=== PATIENT | female | born 1970 | race Caucasian/White ===

== ENCOUNTER 2018-01-24 21:37 | Emergency (ER) | payer OTHER ==
[2018-01-24 21:51] VITALS: BP 138/93; PULSE 103; TEMP 99.5; BMI 27.2
[2018-01-24] MEDS ORDERED: DEXAMETHASONE SOD PHOSPHATE 10 MG/1 ML VIAL IM ONE (22:10)
--- NOTE | 2018-01-24 22:10 | PDOC ---
History of Present Illness - General Chief Complaint: Allergic Reaction Stated Complaint: RASH Time Seen by Provider: 01/24/18 21:58 History Source: Patient - History of Present Illness Timing/Duration: reports: other Past History - Past Medical History Allergies/Adverse Reactions: Allergies Allergy/AdvReac Type Severity Reaction Status Date / Time No Known Allergies Allergy Verified 01/24/18 21:47 Home Medications: Ambulatory Orders Ibuprofen [Motrin -] 2 tab PO Q6H #30 tablet 01/24/18 COPD: No Other medical history: arthritis - Suicide/Smoking/Psychosocial Hx Smoking History: Never smoked Review of Systems - Review of Systems Constitutional: No: Chills, Fever Respiratory: Yes: Cough. No: Shortness of Breath, Wheezing Integumentary: Yes: Pruritus, Rash *Physical Exam - Vital Signs Last Vital Signs Temp Pulse Resp BP Pulse Ox 99.5 F 103 H 18 138/93 100 01/24/18 21:48 01/24/18 21:48 01/24/18 21:48 01/24/18 21:48 01/24/18 21:48 - Physical Exam General Appearance: Yes: Appropriately Dressed. No: Apparent Distress HEENT: positive: Normal ENT Inspection, Normal Voice. negative: Scleral Icterus (R), Scleral Icterus (L) Neck: positive: Supple Respiratory/Chest: positive: Lungs Clear, Normal Breath Sounds. negative: Respiratory Distress Cardiovascular: positive: Regular Rate, S1, S2 Integumentary: positive: Dry, Warm, Rash (hives to torso and upper exts b/l) Neurologic: positive: Fully Oriented, Alert, Normal Mood/Affect Medical Decision Making - Medical Decision Making 01/24/18 22:09 47-year-old female, no significant history here with dry cough since yesterday, no shortness of breath, chest pain, fever or chills. No tobacco history. No history of pneumonia. Also complaining of pruritic rash to body diffusely 5 days. No obvious inciting agents. Taking claritin with no relief. See exam URI m/l viral Exam unremarkable -dc w/ supportive tx Hives No obvious inciting factors -dose of decadron in ED -dc w/ benadryl OTC prn *DC/Admit/Observation/Transfer Diagnosis at time of Disposition: Hives URI (upper respiratory infection) Qualifiers: URI type: unspecified viral URI Qualified Code(s): J06.9 - Acute upper respiratory infection, unspecified - Discharge Dispostion Disposition: HOME Condition at time of disposition: Good - Prescriptions Prescriptions: Ibuprofen [Motrin -] 2 tab PO Q6H #30 tablet - Referrals - Patient Instructions Printed Discharge Instructions: DI for Hives, DI for Viral Upper Respiratory Infection -- Adult Additional Instructions: Wright tos es probablemente causada por chaz infeccin viral. [place] Robitussin de venta eliezer segn sea necesario y annalise muchos lquidos. Wright erupcin parece ser de naturaleza alrgica. Le dieron chaz dosis de esteroides en la disfuncin erctil. Compre Benadryl sin receta y tome chaz tableta cada 6 horas segn sea necesario para la picazn. Urszula medicamento puede causarle somnolencia, por lo que si tiene que salir de wright casa o conducir , no lo tome. Continuar el seguimiento con wright PMD Print Language: TAJIK - Post Discharge Activity
[2018-01-24] MEDS ORDERED: DEXAMETHASONE SOD PHOSPHATE 10 MG/1 ML VIAL ONE (22:13)
== END 2018-01-24 22:27 | disposition home or self-care (01) ==
LOC: JERFT 21:37
PROC: 3E0233Z Introduction of Anti-inflammatory into Muscle, Percutaneous Approach (ICD-10-PCS; principal; 2018-01-24)
DX: J06.9 Acute upper respiratory infection, unspecified (principal); B97.89 Other viral agents as the cause of diseases classified elsewhere; L50.9 Urticaria, unspecified
CPT/HCPCS: 96372; 99281-25; J1100

== ENCOUNTER 2018-02-24 14:33 | Inpatient (IN) | payer OTHER ==
--- NOTE | 2018-02-24 15:24 | PDOC ---
Rapid Medical Evaluation Chief Complaint: Pain Time Seen by Provider: 02/24/18 15:20 Medical Evaluation: Allergies Allergy/AdvReac Type Severity Reaction Status Date / Time No Known Allergies Allergy Verified 01/24/18 21:47 02/24/18 15:22 I have performed a brief in person evaluation. The patient presents with a CC of : abdominal pain HPI: Pt is a 47 YO female who states that she was diagnosed with a pelvic mass and was evaluated by her PCP last week. Pain is a 0/10. PE: Skin: Clear Lungs: Clear Heart: RRR Abd: Pain upon palpation to the RLE with hard mass palpated. MS: Moves all extremities without difficulty Neuro: Alert Psych: Appropriate affect I have ordered the following: basic labs. The patient will proceed to the ED for further evaluation. Discharge Disposition - Diagnosis Abdominal mass Qualifiers: Abdominal location: right lower quadrant Qualified Code(s): R19.03 - Right lower quadrant abdominal swelling, mass and lump - Referrals Referrals: Rene Chin MD [Primary Care Provider] - - Patient Instructions - Post Discharge Activity
[2018-02-24 15:29] VITALS: BMI 24.7
[2018-02-24 15:45] LABS: BASO % 0.7 % (0-2.0); EOS % 0.8 % (0-4.5); HEMOGLOBIN 11.5 GM/dL (10.7-15.3); LYMPH % 11.9 % (8-40); MCHC 33.8 g/dl (32.0-36.0); MEAN CELL VOLUME 76.9 fl (80-96); MEAN PLT VOLUME 7.3 fl (7.5-11.1); MONO % 7.6 % (3.8-10.2); PLATELET COUNT 399 K/MM3 (134-434); RBC 4.43 M/mm3 (3.60-5.2); RDW 16.1 % (11.6-15.6); WHITE BLOOD COUNT 10.3 K/mm3 (4.0-10.0)
[2018-02-24 16:19] LABS: ALBUMIN 3.1 g/dl (3.4-5.0); ALK PHOS 71 U/L (45-117); ANION GAP 8 MMOL/L (8-16); BILIRUBIN,TOTAL 0.2 mg/dL (0.2-1); BLOOD UREA NITROGEN 10 mg/dL (7-18); CALCIUM 8.3 mg/dL (8.5-10.1); CHLORIDE 104 mmol/L (98-107); CO2 27 mmol/L (21-32); CREATININE 0.7 mg/dL (0.55-1.3); GLUCOSE,RANDOM 106 mg/dL (74-106); LIPASE 120 U/L (73-393); SGOT/AST 13 U/L (15-37); SGPT/ALT 23 U/L (13-61); SODIUM 139 mmol/L (136-145); TOT PROT 6.9 g/dl (6.4-8.2)
[2018-02-24 16:40] LABS: HCG,QUALITATIVE URINE Negative
[2018-02-24 16:53] LABS: URINE APPEARANCE CLEAR; URINE BILIRUBIN NEGATIVE (<2.0 mg/dL); URINE COLOR YELLOW; URINE GLUCOSE (UA) NEGATIVE (NEGATIVE); URINE KETONE NEGATIVE (NEGATIVE); URINE LEUK ESTERASE NEGATIVE (NEGATIVE); URINE NITRITE NEGATIVE (NEGATIVE); URINE PROTEIN 1+ (NEGATIVE); URINE UROBILINOGEN NEGATIVE mg/dL (0.2-1.0)
[2018-02-24 17:12] LABS: EPI CELLS RARE /HPF (FEW); URINE MUCUS FEW
--- NOTE | 2018-02-24 17:39 | PDOC ---
History of Present Illness - General Chief Complaint: Pain Stated Complaint: ABD PAIN Time Seen by Provider: 02/24/18 15:20 History Source: Patient Exam Limitations: No Limitations - History of Present Illness Travel History: No Initial Comments: 02/24/18 18:26 47-year-old female presents to ED with complaints of continual rash to her body along with a bump to her suprapubic area. Patient states had multiple abdominal surgeries for abdominoplasty last one being 4 years ago and states for the past year she has had this bump below her suprapubic incision. Patient denies fever, chills redness, increased warmth or drainage from the site. Patient states went to see her PCP was recommending an abdominal CT to rule out adhesions versus seroma. Patient also was given a referral to a surgical physician at [facility] but states came here for a second opinion. Timing/Duration: reports: changing over time Quality: reports: mild Abdominal Pain Onset Location: reports: suprapubic Pain Radiation: reports: no radiation Aggravating Factors: improves with: None Alleviating Factors: improves with: None Past History - Past Medical History Allergies/Adverse Reactions: Allergies Allergy/AdvReac Type Severity Reaction Status Date / Time No Known Allergies Allergy Verified 02/24/18 15:23 Home Medications: Ambulatory Orders Escitalopram Oxalate [Lexapro -] 5 mg PO DAILY 02/24/18 Ibuprofen [Motrin -] 2 tab PO Q6H PRN 02/24/18 Metoprolol Succinate 50 mg PO DAILY 02/24/18 Omeprazole 40 mg PO DAILY 02/24/18 Zolpidem Tartrate [Ambien] 5 mg PO HS 02/24/18 COPD: No - Suicide/Smoking/Psychosocial Hx Smoking History: Never smoked Patient Lives Alone: No Lives with/in: spouse/SO Review of Systems - Review of Systems Able to Perform ROS?: No Constitutional: No: Symptoms Reported Integumentary: Yes: Lumps, Rash, Other Neurological: No: Symptoms reported *Physical Exam - Vital Signs Last Vital Signs Temp Pulse Resp BP Pulse Ox 99.6 F 91 H 16 120/85 99 02/24/18 15:23 02/24/18 15:23 02/24/18 15:23 02/24/18 15:23 02/24/18 15:23 - Physical Exam General Appearance: Yes: Nourished, Moderate Distress. No: Apparent Distress HEENT: positive: EOMI Neck: positive: Supple Respiratory/Chest: positive: Lungs Clear, Normal Breath Sounds. negative: Respiratory Distress, Accessory Muscle Use Cardiovascular: positive: Regular Rhythm, Regular Rate. negative: Murmur Gastrointestinal/Abdominal: positive: Soft, Other (noted firm raised skin extending to mons pubis below horizontal suprapubic incision. No increased warmth, redness or drainage) Integumentary: positive: Normal Color, Warm, Moist, Rash (scaly circular patches to back and araceli arms), Swelling Neurologic: positive: Motor Strength 5/5 (ambulatory) ED Treatment Course - LABORATORY CBC & Chemistry Diagram: 02/24/18 15:37 02/24/18 15:37 - ADDITIONAL ORDERS Additional order review: Laboratory Results 02/24/18 02/24/18 15:40 15:37 Sodium 139 Potassium 4.0 Chloride 104 Carbon Dioxide 27 Anion Gap 8 BUN 10 Creatinine 0.7 Creat Clearance w eGFR > 60 Random Glucose 106 Calcium 8.3 L Total Bilirubin 0.2 AST 13 L ALT 23 Alkaline Phosphatase 71 Total Protein 6.9 Albumin 3.1 L Lipase 120 Urine Color Yellow Urine Appearance Clear Urine pH 5.0 Ur Specific [place] 1.027 Urine Protein 1+ H Urine Glucose (UA) Negative Urine Ketones Negative Urine Blood 1+ H Urine Nitrite Negative Urine Bilirubin Negative Urine Urobilinogen Negative Ur Leukocyte Esterase Negative Urine WBC (Auto) <1 Urine RBC (Auto) 9 Ur Epithelial Cells Rare Urine Mucus Few Urine HCG, Qual Negative 02/24/18 15:37 RBC 4.43 MCV 76.9 L MCHC 33.8 RDW 16.1 H MPV 7.3 L Neutrophils % 79.0 Lymphocytes % 11.9 Monocytes % 7.6 Eosinophils % 0.8 Basophils % 0.7 - RADIOLOGY Radiology Studies Ordered: Category Date Time Status ABDOMEN & PELVIS CT WITH CONTR [CT] Stat CT Scan 02/24/18 17:31 Ordered Medical Decision Making - Medical Decision Making 02/24/18 18:34 Chief complaint: rash to bilateral arms and lump below Abdominoplasty incision Exam: Tinea corporis questionable cellulitis, seroma, adhesions plan: Labs, urine and abdominal CT with contrast 02/24/18 18:36 Laboratory Tests 11/20/18 11/20/18 11/20/18 15:37 15:37 15:40 WBC 10.3 H Hgb 11.5 Hct 34.0 MCV 76.9 L MCHC 33.8 RDW 16.1 H Plt Count 399 MPV 7.3 L Absolute Neuts (auto) 8.2 H Sodium 139 Potassium 4.0 Chloride 104 Carbon Dioxide 27 Anion Gap 8 BUN 10 Creatinine 0.7 Random Glucose 106 Calcium 8.3 L Total Bilirubin 0.2 AST 13 L ALT 23 Alkaline Phosphatase 71 Total Protein 6.9 Albumin 3.1 L Lipase 120 Urine Blood 1+ H Urine Nitrite Negative Ur Leukocyte Esterase Negative Urine WBC (Auto) <1 Urine RBC (Auto) 9 Urine HCG, Qual Negative *DC/Admit/Observation/Transfer Diagnosis at time of Disposition: Abdominal mass Qualifiers: Abdominal location: right lower quadrant Qualified Code(s): R19.03 - Right lower quadrant abdominal swelling, mass and lump - Referrals Referrals: Rene Chin MD [Primary Care Provider] - - Patient Instructions - Post Discharge Activity
--- NOTE | 2018-02-24 19:10 | PDOC ---
*Physical Exam - Vital Signs Last Vital Signs Temp Pulse Resp BP Pulse Ox 99.6 F 91 H 16 120/85 99 02/24/18 15:23 02/24/18 15:23 02/24/18 15:23 02/24/18 15:23 02/24/18 15:23 - Physical Exam General Appearance: Yes: Nourished, Appropriately Dressed. No: Apparent Distress Integumentary: positive: Dry, Warm, Rash (erythematous, flaking annular rash with central clearing to the legs and arms b/l.), Other (hard, warm, indurated area measuing [id number] to the lower abdomen b/l with induration extending into the R labia majora) Neurologic: positive: Fully Oriented, Alert, Normal Mood/Affect, Normal Response ED Treatment Course - LABORATORY CBC & Chemistry Diagram: 02/24/18 15:37 02/24/18 15:37 - ADDITIONAL ORDERS Additional order review: Laboratory Results 02/24/18 02/24/18 15:40 15:37 Sodium 139 Potassium 4.0 Chloride 104 Carbon Dioxide 27 Anion Gap 8 BUN 10 Creatinine 0.7 Creat Clearance w eGFR > 60 Random Glucose 106 Calcium 8.3 L Total Bilirubin 0.2 AST 13 L ALT 23 Alkaline Phosphatase 71 Total Protein 6.9 Albumin 3.1 L Lipase 120 Urine Color Yellow Urine Appearance Clear Urine pH 5.0 Ur Specific [place] 1.027 Urine Protein 1+ H Urine Glucose (UA) Negative Urine Ketones Negative Urine Blood 1+ H Urine Nitrite Negative Urine Bilirubin Negative Urine Urobilinogen Negative Ur Leukocyte Esterase Negative Urine WBC (Auto) <1 Urine RBC (Auto) 9 Ur Epithelial Cells Rare Urine Mucus Few Urine HCG, Qual Negative 02/24/18 15:37 RBC 4.43 MCV 76.9 L MCHC 33.8 RDW 16.1 H MPV 7.3 L Neutrophils % 79.0 Lymphocytes % 11.9 Monocytes % 7.6 Eosinophils % 0.8 Basophils % 0.7 - Medications Given in the ED: ED Medications Discontinued Medications Generic Name Dose Route Start Last Admin Trade Name Freq PRN Reason Stop Dose Admin Oxycodone/Acetaminophen 1 combo 02/24/18 17:31 02/24/18 18:09 Percocet 5/325 - PO 02/24/18 17:32 1 combo ONCE ONE Administration Medical Decision Making - Medical Decision Making 02/24/18 19:09 Sign out received from ADOLFO Moreira. Pt currently in CTAP to evaluate a possible seroma vs cellulitis. Will evaluate pt when back from CT. 02/24/18 20:50 CTAP: Cellulitis to the lower abdominal wall without abscess at this time. On exam lower abdomen extending into the groin hard and indurated; lymph nodes noted in the groin Will admit for cellulitis Vancomycin and zosyn started empirically Case discussed with Dr. Liz from [facility]. Pt to be admitted under Dr. Serrano. *DC/Admit/Observation/Transfer Diagnosis at time of Disposition: Cellulitis Qualifiers: Site of cellulitis: trunk Site of cellulitis of trunk: abdominal wall Qualified Code(s): L03.311 - Cellulitis of abdominal wall - Discharge Dispostion Condition at time of disposition: Stable Decision to Admit order: Yes - Referrals Referrals: Rene Chin MD [Primary Care Provider] - - Patient Instructions - Post Discharge Activity
[2018-02-24] MEDS ORDERED: VANCOMYCIN 1,000 MG in DEXTROSE 5%-WATER - 250 ML IVPB ONE (20:46)
[2018-02-24] MEDS ORDERED: PIPERACILLIN/TAZOB 3.375 GM 3.375 GM in DEXTROSE 5%-WATER - 50 ML IVPB ONE (20:47)
[2018-02-24] MEDS ORDERED: PIPERACILLIN/TAZOB 3.375 GM 3.375 GM/50 ML BAG IVPB ONE (20:52)
[2018-02-24] MEDS ORDERED: VANCOMYCIN 1 GRAM (PRE-DOCKED) 1,000 MG/250 ML BAG IVPB ONE (20:52)
--- NOTE | 2018-02-24 21:49 | PN ---
Teaching Attending Note Name of Resident: Chente Liz ATTENDING PHYSICIAN STATEMENT I saw and evaluated the patient. I reviewed the resident's note and discussed the case with the resident. I agree with the resident's findings and plan as documented. SUBJECTIVE: Patient is a 47-year-old woman who presents to ER with complaints of continual rash to her body along with a bump to her suprapubic area. Patient states had multiple abdominal surgeries for abdominoplasty last one being 4 years ago and states for the past year she has had this bump below her suprapubic incision. Patient denies fever, chills redness, increased warmth or drainage from the site. Patient states went to see her PCP was recommending an abdominal CT to rule out adhesions versus seroma. Patient also was given a referral to a surgical physician at [facility] but states came here for a second opinion. OBJECTIVE: Alert Vital Signs Period Temp Pulse Resp BP Sys/Rankin Pulse Ox Last 24 Hr 99.6 F-100.1 F 89-93 16-18 108-120/77-85 98-99 HEENT: No Jaundice, eye redness or discharge, PERRLA, EOMI. Normocephalic, atraumatic. External ears are normal and hearing is grossly intact. No nasal discharge. Neck: Supple, nontender. No palpable adenopathy or thyromegaly. No JVD Chest: Good effort. Clear to auscultation and percussion. Heart: Regular. No S3, rub or murmur Abdomen: Erythema and induration of lower abdominal wall extending into the pelvis. Not distended, soft, nontender and no HSM. No rebound or guarding. Normoactive bowel sounds. Ext: Peripheral pulses intact. No leg edema. Skin: Warm and dry. No petechiae, rash or ecchymosis. Neuro: Alert. Oriented x3. CN 2-12 grossly intact. Sensation grossly intact in all four extremities and DTR are symmetric. Current Medications Generic Name Dose Route Start Last Admin Trade Name Freq PRN Reason Stop Dose Admin Vancomycin HCl 1,000 mg/ 250 mls @ 166.667 mls/hr 02/24/18 20:46 02/24/18 21: 38 Dextrose IVPB 02/24/18 22:15 166.667 mls/hr ONCE ONE Administration Protocol Home Medications Medication Instructions Recorded Escitalopram Oxalate [Lexapro -] 5 mg PO DAILY 02/24/18 Ibuprofen [Motrin -] 2 tab PO Q6H PRN 02/24/18 Metoprolol Succinate 50 mg PO DAILY 02/24/18 Omeprazole 40 mg PO DAILY 02/24/18 Zolpidem Tartrate [Ambien] 5 mg PO HS 02/24/18 Abnormal Lab Results 02/24/18 02/24/18 02/24/18 15:37 15:37 15:40 WBC 10.3 H MCV 76.9 L RDW 16.1 H MPV 7.3 L Absolute Neuts (auto) 8.2 H Calcium 8.3 L AST 13 L Albumin 3.1 L Urine Protein 1+ H Urine Blood 1+ H ASSESSMENT AND PLAN: 1. Abdominal wall cellulitis - CT scan suggests cellulitis without fluid collection. No pelvic mass noted. Has left ovarian mass. Will continue treatment with IV vancomycin and consult ID. 2. DVT prophylaxis - Lovenox 40 mg sq q 24 hours. 3. Advance directives - Full code
--- NOTE | 2018-02-24 22:30 | HP ---
CHIEF COMPLAINT: lower abdominal swelling and pain PCP: HISTORY OF PRESENT ILLNESS: Patient is a 47 y/o F w/ PMHx/PSHx multiple abdominal/pelvic surgeries including hysterectomy, adhesion resection, cosmetic procedures, also has HTN, p /w of lower abdominal swelling, saw PCP 1 week ago who recommended CT a/p to evaluate seroma vs. adhesion. On presentation patient has large elevated region of lower abdomen centered around pubic symphysis with warmth, erythema, considerable induration, 9/10 tenderness. Additionally noted to have rash of arms and legs b/l consistent w/ tinea. No f/c, no n/v/c/d, no CP , no SOB. Borderline febrile in ED, labs otherwise unremarkable. hCG negative. CT a/p significant for extensive cellulitis of anterior lower abdominal wall without abscess formation. ER course was notable for: (1) BCx drawn (2) started on empiric Vanc/Zosyn (3) CT a/p: cellulitis Recent Travel: PAST MEDICAL HISTORY: As per HPI PAST SURGICAL HISTORY: As per HPI Social History: Smoking: Alcohol: Drugs: Family History: Allergies No Known Allergies Allergy (Verified 02/24/18 15:23) HOME MEDICATIONS: Home Medications Medication Instructions Recorded Escitalopram Oxalate [Lexapro -] 5 mg PO DAILY 02/24/18 Ibuprofen [Motrin -] 2 tab PO Q6H PRN 02/24/18 Metoprolol Succinate 50 mg PO DAILY 02/24/18 Omeprazole 40 mg PO DAILY 02/24/18 Zolpidem Tartrate [Ambien] 5 mg PO HS 02/24/18 REVIEW OF SYSTEMS as per HPI PHYSICAL EXAMINATION Vital Signs - 24 hr 02/24/18 02/24/18 02/24/18 15:23 19:00 20:19 Temperature 99.6 F 100.1 F H Pulse Rate 91 H Pulse Rate [ 89 93 H Left Radial] Respiratory 16 18 17 Rate Blood Pressure 120/85 Blood Pressure 108/77 114/77 [Right Arm] O2 Sat by Pulse 99 98 98 Oximetry (%) GENERAL: A&Ox3, NAD HEAD: NC/AT EYES: PERRLA, EOMI EARS, NOSE, THROAT: Ears normal, nares patent, oropharynx clear without exudates. Moist mucous membranes. NECK: Normal range of motion, supple without lymphadenopathy, JVD, or masses. LUNGS: CTA b/l HEART: RRR no m/r/g ABDOMEN: elevated, indurated region of skin in suprapubic region extending from ASIS to lab majora b/l w/ warmth and erythema, 9/10 TTP, inguinal lymphadenopathy, area of erythema and warmth extends superiorly to umbilicus. Otherwise +bs, soft. MUSCULOSKELETAL: Normal range of motion at all joints. No bony deformities or tenderness. No CVA tenderness. UPPER EXTREMITIES: 2+ pulses, warm, well-perfused. No cyanosis. No clubbing. No peripheral edema. LOWER EXTREMITIES: 2+ pulses, warm, well-perfused. No calf tenderness. No peripheral edema. NEUROLOGICAL: double cut sawyer, motor, sensory systems without focal deficit PSYCHIATRIC: Cooperative. Good eye contact. Appropriate mood and affect. SKIN: scaly circular lesions diffusely x 4 extremities Laboratory Results - last 24 hr 02/24/18 02/24/18 02/24/18 15:37 15:37 15:40 WBC 10.3 H RBC 4.43 Hgb 11.5 Hct 34.0 MCV 76.9 L MCH 26.0 MCHC 33.8 RDW 16.1 H Plt Count 399 MPV 7.3 L Absolute Neuts (auto) 8.2 H Neutrophils % 79.0 Lymphocytes % 11.9 Monocytes % 7.6 Eosinophils % 0.8 Basophils % 0.7 Nucleated RBC % 0 Sodium 139 Potassium 4.0 Chloride 104 Carbon Dioxide 27 Anion Gap 8 BUN 10 Creatinine 0.7 Creat Clearance w eGFR > 60 Random Glucose 106 Calcium 8.3 L Total Bilirubin 0.2 AST 13 L ALT 23 Alkaline Phosphatase 71 Total Protein 6.9 Albumin 3.1 L Lipase 120 Urine Color Yellow Urine Appearance Clear Urine pH 5.0 Ur Specific [place] 1.027 Urine Protein 1+ H Urine Glucose (UA) Negative Urine Ketones Negative Urine Blood 1+ H Urine Nitrite Negative Urine Bilirubin Negative Urine Urobilinogen Negative Ur Leukocyte Esterase Negative Urine WBC (Auto) <1 Urine RBC (Auto) 9 Ur Epithelial Cells Rare Urine Mucus Few Urine HCG, Qual Negative ASSESSMENT/PLAN: 47 y/o F w/ PMHx multiple abdominal/pelvic surgeries p/w chronic suprapubic swelling w/ acute development of lower abdominal wall cellulitis #cellulitis -large region of induration from ASIS to labia majora b/l, +lymphadenopathy -further extension of erythema/warmth to umbilicus -ID consulted -empiric vanc/zosyn given -cont vancomycin pending ID evaluation #tinea -topical miconazole #FEN -no IVF -monitor lytes -regular diet #PPx -DVT: heparin subq -GI: not indicated #code -full #dispo -admit to med/surg Visit type - Emergency Visit Emergency Visit: Yes Care time: The patient presented to the Emergency Department on the above date and was hospitalized for further evaluation of their emergent condition. - New Patient This patient is new to me today: Yes Date on this admission: 02/24/18 - Critical Care Critical Care patient: No
[2018-02-25] MEDS ORDERED: HEPARIN NA (PORCINE) 5,000 UNITS/ML 1ML VIAL ONE (00:09)
[2018-02-25] MEDS: HEPARIN NA (PORCINE) 5,000 UNITS/ML 1ML VIAL SQ SCH ×4 (00:13→21:50)
[2018-02-25] MEDS: MICONAZOLE NITRATE 28 GM TUBE TP SCH ×3 (00:13→21:49)
[2018-02-25] MEDS ORDERED: ACETAMINOPHEN 325 MG TABLET (FP) PO ONE (03:12)
[2018-02-25] MEDS ORDERED: MELATONIN 5 MG TABLETS PO ONE ×2 (03:12→22:00)
[2018-02-25 06:51] LABS: BASO % 0.5 % (0-2.0); EOS % 0.5 % (0-4.5); HEMATOCRIT 32.7 % (32.4-45.2); HEMOGLOBIN 10.4 GM/dL (10.7-15.3); LYMPH % 18.7 % (8-40); MCH 24.6 pg (25.7-33.7); MCHC 31.8 g/dl (32.0-36.0); MEAN CELL VOLUME 77.3 fl (80-96); MEAN PLT VOLUME 7.5 fl (7.5-11.1); MONO % 6.1 % (3.8-10.2); NEUT % 74.2 % (42.8-82.8); PLATELET COUNT 355 K/MM3 (134-434); RBC 4.23 M/mm3 (3.60-5.2); RDW 16.3 % (11.6-15.6); WHITE BLOOD COUNT 9.7 K/mm3 (4.0-10.0)
[2018-02-25 07:13] LABS: INR 1.26 (0.83-1.09); PROTHROMBIN TIME (PATIENT) 14.9 SEC (9.7-13.0)
[2018-02-25 07:16] LABS: ACTIVATED PTT 30.9 SECONDS (25.2-36.5)
[2018-02-25 07:43] LABS: ANION GAP 8 MMOL/L (8-16); BLOOD UREA NITROGEN 10 mg/dL (7-18); CHLORIDE 104 mmol/L (98-107); CO2 27 mmol/L (21-32); CREATININE 0.7 mg/dL (0.55-1.3); GLUCOSE,RANDOM 92 mg/dL (74-106); MAGNESIUM 2.2 mg/dL (1.8-2.4); PHOSPHOROUS 4.8 mg/dL (2.5-4.9); POTASSIUM 3.8 mmol/L (3.5-5.1); SODIUM 139 mmol/L (136-145)
[2018-02-25] MEDS ORDERED: ACETAMINOPHEN 325 MG TABLET (FP) PO PRN (09:18)
[2018-02-25] MEDS ORDERED: PIPERACILLIN/TAZOB 3.375 GM 3.375 GM in DEXTROSE 5%-WATER - 50 ML IVPB ONE (09:18)
[2018-02-25] MEDS ORDERED: VANCOMYCIN 1 GRAM (PRE-DOCKED) 1,000 MG/250 ML BAG IVPB ONE (10:00)
[2018-02-25] MEDS ORDERED: PT OWN MED DRAWER 7, Y5N ONE (10:12)
[2018-02-25] MEDS ORDERED: DEXTROSE 5%-WATER - 50 ML IVPB ONE (10:12)
[2018-02-25] MEDS ORDERED: PIPERACILLIN/TAZOBACTAM 3.375 GM VIAL IVPB ONE (10:12)
--- NOTE | 2018-02-25 12:02 | CON.ID ---
Consult Consult Specialty:: infectious disease Referred by:: hospitalist Reason for Consultation:: induration below her abdominal incision - History of Present Illness Chief Complaint: induration, pain lower abdomen for 2 months History of Present Illness: 47 yo female with history of multiple abdominal surgeries including tummy tuck and hysterectomy- last procedure was 2013 in . no fevers 2 months ago she was on a trip to when the abdominal swelling and pain began she notes she had a much milder swelling last year that resolved with motrin- also has a itchy rash on her arms and legs for last one month-respondingto topical antifungals and benadryl received vanco and zosyn in ED no pets - History Source History Provided By: Patient Limitations to Obtaining History: Poor Historian - Past Medical History Cardio/Vascular: Yes: HTN - Past Surgical History Past Surgical History: Yes: Hernia Repair (with mesh), Hysterectomy Additional Surgical History: tummy tuck, liposuction - Alcohol/Substance Use Hx Alcohol Use: No - Smoking History Smoking history: Never smoked - Social History Usual Living Arrangement: Alone ADL: Independent History of Recent Travel: Yes () Home Medications - Allergies Allergies/Adverse Reactions: Allergies Allergy/AdvReac Type Severity Reaction Status Date / Time No Known Allergies Allergy Verified 02/24/18 15:23 - Home Medications Home Medications: Ambulatory Orders Escitalopram Oxalate [Lexapro -] 5 mg PO DAILY 02/24/18 Ibuprofen [Motrin -] 2 tab PO Q6H PRN 02/24/18 Metoprolol Succinate 50 mg PO DAILY 02/24/18 Omeprazole 40 mg PO DAILY 02/24/18 Zolpidem Tartrate [Ambien] 10 mg PO HS 02/24/18 Acetaminophen [Tylenol] 325 mg PO Q8H PRN 02/25/18 Albuterol Sulfate Inhaler - [Ventolin HFA Inhaler -] 2 puff IH Q6H PRN 02/25/18 Family Disease History - Family Disease History Family History: Unable to Obtain Review of Systems - Review of Systems Constitutional: denies: Chills, Fever, Loss of Appetite, Unintentional Wgt. Loss Eyes: reports: No Symptoms HENT: reports: No Symptoms Neck: reports: No Symptoms Cardiovascular: reports: No Symptoms Respiratory: reports: No Symptoms Gastrointestinal: reports: No Symptoms. denies: Constipation, Diarrhea, Nausea , Vomiting Physical Exam Vital Signs: Vital Signs Temperature 99.0 F 02/25/18 06:00 Pulse Rate 84 02/25/18 06:00 Respiratory Rate 18 02/25/18 06:00 Blood Pressure 103/60 02/25/18 06:00 O2 Sat by Pulse Oximetry (%) 100 02/25/18 02:00 Constitutional: Yes: Well Nourished, No Distress Eyes: Yes: Conjunctiva Clear, EOM Intact HENT: Yes: Atraumatic, Normocephalic. No: Thrush Neck: Yes: Supple, Trachea Midline Cardiovascular: Yes: Regular Rate and Rhythm Respiratory: Yes: Regular, CTA Bilaterally Gastrointestinal: Yes: Normal Bowel Sounds, Other (hard indurated right lower abdomen below midlinincision, extending to labia on the right left side is also swollen but less indurated no fluctuance, no erythema) Edema: No Labs: CBC, BMP 02/25/18 06:00 02/25/18 06:00 Imaging - Results Cat Scan: Report Reviewed, Image Reviewed (no seroma, no fluid collection, no adenopathy, area of inflammation outside the abdominal wall) Problem List - Problems (1) Abdominal or pelvic swelling, mass, or lump, generalized Code(s): R19.07 - GENERALIZED INTRA-ABD AND PELVIC SWELLING, MASS AND LUMP Assessment/Plan chronic problem- makes acute bacterial infection unlikely- needs workup to include esr/crp, HIV testing (patient agrees), quantiferon gold would consider biopsy for both culture (routine, afb, fungal) as well as pathology would observe off antibiotics if indeed this is a chronic mesh infection - is will be inportant to establish a diagnosis first - ?atypical mycobacterial infection?? ct scan reviewed with radiologist d/w hospitalist
--- NOTE | 2018-02-25 15:20 | PN ---
Physical Exam: SUBJECTIVE: Patient seen and examined at bedside. no acute events overnight. patient states that her pain is much better; she is not having any chest pains, shortness of breath, N/V fevers or chills OBJECTIVE: Vital Signs Period Temp Pulse Resp BP Sys/Rankin Pulse Ox Last 24 Hr 97.6 F-100.1 F 80-93 16-20 103-120/60-98 98-100 GENERAL: The patient is awake, alert, and fully oriented, in no acute distress. EYES: no scleral icterus NECK: no JVD, no thyromegaly LUNGS:CTA B/L; no rales, rhonchi or wheezing HEART: Regular rate and rhythm, S1, S2 without murmur, rub or gallop. ABDOMEN: right sided lower abomen/pelvic indurated region with erythema no fluctuance or drainage appreciated; left sided slightly swollen with some induration EXTREMITIES: 2+ pulses, warm, well-perfused, no edema; upper extremities showing a tinea-like rash. PSYCH: Normal mood, normal affect. SKIN: Warm, dry, normal turgor, no rashes or lesions noted Laboratory Results - last 24 hr 02/24/18 02/24/18 02/24/18 15:37 15:37 15:40 WBC 10.3 H RBC 4.43 Hgb 11.5 Hct 34.0 MCV 76.9 L MCH 26.0 MCHC 33.8 RDW 16.1 H Plt Count 399 MPV 7.3 L Absolute Neuts (auto) 8.2 H Neutrophils % 79.0 Lymphocytes % 11.9 Monocytes % 7.6 Eosinophils % 0.8 Basophils % 0.7 Nucleated RBC % 0 PT with INR INR PTT (Actin FS) Sodium 139 Potassium 4.0 Chloride 104 Carbon Dioxide 27 Anion Gap 8 BUN 10 Creatinine 0.7 Creat Clearance w eGFR > 60 Random Glucose 106 Hemoglobin A1c % Calcium 8.3 L Phosphorus Magnesium Total Bilirubin 0.2 AST 13 L ALT 23 Alkaline Phosphatase 71 Total Protein 6.9 Albumin 3.1 L Lipase 120 Urine Color Yellow Urine Appearance Clear Urine pH 5.0 Ur Specific [place] 1.027 Urine Protein 1+ H Urine Glucose (UA) Negative Urine Ketones Negative Urine Blood 1+ H Urine Nitrite Negative Urine Bilirubin Negative Urine Urobilinogen Negative Ur Leukocyte Esterase Negative Urine WBC (Auto) <1 Urine RBC (Auto) 9 Ur Epithelial Cells Rare Urine Mucus Few Urine HCG, Qual Negative Blood Type Antibody Screen 02/25/18 02/25/18 02/25/18 06:00 06:00 06:00 WBC 9.7 RBC 4.23 Hgb 10.4 L Hct 32.7 MCV 77.3 L MCH 24.6 L MCHC 31.8 L RDW 16.3 H Plt Count 355 MPV 7.5 Absolute Neuts (auto) 7.2 Neutrophils % 74.2 Lymphocytes % 18.7 D Monocytes % 6.1 Eosinophils % 0.5 Basophils % 0.5 Nucleated RBC % 0 PT with INR 14.90 H INR 1.26 H PTT (Actin FS) 30.9 Sodium 139 Potassium 3.8 Chloride 104 Carbon Dioxide 27 Anion Gap 8 BUN 10 Creatinine 0.7 Creat Clearance w eGFR > 60 Random Glucose 92 Hemoglobin A1c % Calcium 8.0 L Phosphorus 4.8 Magnesium 2.2 Total Bilirubin AST ALT Alkaline Phosphatase Total Protein Albumin Lipase Urine Color Urine Appearance Urine pH Ur Specific [place] Urine Protein Urine Glucose (UA) Urine Ketones Urine Blood Urine Nitrite Urine Bilirubin Urine Urobilinogen Ur Leukocyte Esterase Urine WBC (Auto) Urine RBC (Auto) Ur Epithelial Cells Urine Mucus Urine HCG, Qual Blood Type Antibody Screen 02/25/18 02/25/18 02/25/18 06:00 06:00 10:03 WBC RBC Hgb Hct MCV MCH MCHC RDW Plt Count MPV Absolute Neuts (auto) Neutrophils % Lymphocytes % Monocytes % Eosinophils % Basophils % Nucleated RBC % PT with INR INR PTT (Actin FS) Sodium Potassium Chloride Carbon Dioxide Anion Gap BUN Creatinine Creat Clearance w eGFR Random Glucose Hemoglobin A1c % < 5.0 Calcium Phosphorus Magnesium Total Bilirubin AST ALT Alkaline Phosphatase Total Protein Albumin Lipase Urine Color Urine Appearance Urine pH Ur Specific [place] Urine Protein Urine Glucose (UA) Urine Ketones Urine Blood Urine Nitrite Urine Bilirubin Urine Urobilinogen Ur Leukocyte Esterase Urine WBC (Auto) Urine RBC (Auto) Ur Epithelial Cells Urine Mucus Urine HCG, Qual Blood Type O POSITIVE O POSITIVE Antibody Screen Negative Active Medications Generic Name Dose Route Start Last Admin Trade Name Freq PRN Reason Stop Dose Admin Acetaminophen 650 mg 02/25/18 09:18 Tylenol - PO Q4H PRN PAIN Heparin Sodium (Porcine) 5,000 unit 02/24/18 22:30 02/25/18 06:16 Heparin - SQ 5,000 unit TID JOSEFINA Administration Miconazole Nitrate 1 applic 02/24/18 22:30 02/25/18 10:25 Miconazole Nitrate TP 1 applic BID JOSEFINA Administration ASSESSMENT/PLAN: 47 y/o female with PMH of HTN, multiple abdominal/pelvic surgery presents with chronic suprapubic swelling with development of lower abdominal wall cellulitis #Abdominal Wall Cellulitis ab/pelvis CT showed skin thickening, inflammatory changes within the anterior abdominal wall of lower pelvis c/w cellulitis but no hematoma or abcess -ID consulted- appreciate recs -ESR/CRP ordered -HIV testing ordered (patient consented) -quanteferon gold ordered -patient not currently on abx -HBA1c <5 #Tinea rash -topical miconazole #Hypertension -stable -holding patients antihypertensive meds for now F/E/N no IVF monitor electrolytes regular diet DVT PPX: heparin SQ Problem List - Problems (1) Abdominal or pelvic swelling, mass, or lump, generalized Code(s): R19.07 - GENERALIZED INTRA-ABD AND PELVIC SWELLING, MASS AND LUMP (2) Cellulitis Code(s): L03.90 - CELLULITIS, UNSPECIFIED Qualifiers: Site of cellulitis: trunk Site of cellulitis of trunk: abdominal wall Qualified Code(s): L03.311 - Cellulitis of abdominal wall Visit type - Emergency Visit Emergency Visit: Yes ED Registration Date: 02/24/18 Care time: The patient presented to the Emergency Department on the above date and was hospitalized for further evaluation of their emergent condition. - New Patient This patient is new to me today: Yes Date on this admission: 02/25/18 - Critical Care Critical Care patient: No
--- NOTE | 2018-02-25 17:26 | PN ---
Teaching Attending Note Name of Resident: Maribel Delgado ATTENDING PHYSICIAN STATEMENT I saw and evaluated the patient. I reviewed the resident's note and discussed the case with the resident. I agree with the resident's findings and plan as documented with exceptions below. SUBJECTIVE: Patient seen and examined. No pain currently,no fevers, chills or new complaints. OBJECTIVE: Vital Signs Period Temp Pulse Resp BP Sys/Rankin Pulse Ox Last 24 Hr 97.6 F-100.1 F 80-93 17-20 103-120/60-98 98-100 Intake & Output 02/22/18 02/23/18 02/24/18 02/25/18 23:59 23:59 23:59 23:59 Intake Total 350 Balance 350 Weight 139 lb 12.8 oz 140 lb General: sitting in bed in no acute distress Chest: CTAB, no rales or wheezing Abdomen:soft, NT, ND lower abdominal horizontal incisoin, swelling with induration without any erythema/tenderness or warmth in suprapubic region extending down right labia, no discharge noted Extremities: no edema Home Medications Medication Instructions Recorded Escitalopram Oxalate [Lexapro -] 5 mg PO DAILY 02/24/18 Ibuprofen [Motrin -] 2 tab PO Q6H PRN 02/24/18 Metoprolol Succinate 50 mg PO DAILY 02/24/18 Omeprazole 40 mg PO DAILY 02/24/18 Zolpidem Tartrate [Ambien] 10 mg PO HS 02/24/18 Acetaminophen [Tylenol] 325 mg PO Q8H PRN 02/25/18 Albuterol Sulfate Inhaler - 2 puff IH Q6H PRN 02/25/18 [Ventolin HFA Inhaler -] Active Medications Acetaminophen (Tylenol -) 650 mg PO Q4H PRN PRN Reason: PAIN Heparin Sodium (Porcine) (Heparin -) 5,000 unit SQ TID [facility] Last Admin: 02/25/18 06:16 Dose: 5,000 unit Miconazole Nitrate (Miconazole Nitrate) 1 applic TP BID [facility] Last Admin: 02/25/18 10:25 Dose: 1 applic Laboratory Results - last 24 hr 02/25/18 02/25/18 02/25/18 06:00 06:00 06:00 WBC 9.7 RBC 4.23 Hgb 10.4 L Hct 32.7 MCV 77.3 L MCH 24.6 L MCHC 31.8 L RDW 16.3 H Plt Count 355 MPV 7.5 Absolute Neuts (auto) 7.2 Neutrophils % 74.2 Lymphocytes % 18.7 D Monocytes % 6.1 Eosinophils % 0.5 Basophils % 0.5 Nucleated RBC % 0 ESR PT with INR 14.90 H INR 1.26 H PTT (Actin FS) 30.9 Sodium 139 Potassium 3.8 Chloride 104 Carbon Dioxide 27 Anion Gap 8 BUN 10 Creatinine 0.7 Creat Clearance w eGFR > 60 Random Glucose 92 Hemoglobin A1c % Calcium 8.0 L Phosphorus 4.8 Magnesium 2.2 C-Reactive Protein Blood Type Antibody Screen 02/25/18 02/25/18 02/25/18 06:00 06:00 10:03 WBC RBC Hgb Hct MCV MCH MCHC RDW Plt Count MPV Absolute Neuts (auto) Neutrophils % Lymphocytes % Monocytes % Eosinophils % Basophils % Nucleated RBC % ESR PT with INR INR PTT (Actin FS) Sodium Potassium Chloride Carbon Dioxide Anion Gap BUN Creatinine Creat Clearance w eGFR Random Glucose Hemoglobin A1c % < 5.0 Calcium Phosphorus Magnesium C-Reactive Protein Blood Type O POSITIVE O POSITIVE Antibody Screen Negative 02/25/18 02/25/18 13:45 14:50 WBC RBC Hgb Hct MCV MCH MCHC RDW Plt Count MPV Absolute Neuts (auto) Neutrophils % Lymphocytes % Monocytes % Eosinophils % Basophils % Nucleated RBC % ESR 84 H PT with INR INR PTT (Actin FS) Sodium Potassium Chloride Carbon Dioxide Anion Gap BUN Creatinine Creat Clearance w eGFR Random Glucose Hemoglobin A1c % Calcium Phosphorus Magnesium C-Reactive Protein 17.4 H Blood Type Antibody Screen ASSESSMENT AND PLAN: 47 yof with PMhx of multiple abdominal/pelvic surgeries including hysterectomy, adhesion resection, cosmetic procedures, also has HTN here with suprapubic swelling/induration extending to right labia, for more than 2 months, overall intermittent, chronic for last 1 year with some subjective fevers. -Lower abdominal swelling/inudration extending to right labia, ?chronic fibrosis from recurrent infection/inflammation, cannot r/o mass/atypical fungal infections, though clinically not suggestive of acute bacterial infection or cellulitis -HTN -Asthma -multiple abdominal/pelvic surgeries including hysterectomy, adhesion resection , cosmetic procedures Plan: Afebrile, normal WBC here. Discussed with Dr. Lopez, plan to monitor off antibiotics x 24 hours. Discussed with patient in detail about need for outpatient surgical follow up and probably tissue biopsy as indicated. Patient reports has a list of surgeons recommended to her in the past, encouraged needs follow up for the same. D/c home tomorrow if no new fevers, leucocytosis or concerns off antibiotics. Plan discussed with patient in detail, all questions answered.
--- NOTE | 2018-02-26 05:33 | PN ---
Physical Exam: SUBJECTIVE: Patient seen and examined at bed side, No acute events , denies any fever, chills, N/V/D/C, asking to go home , off abx . OBJECTIVE: Vital Signs Period Temp Pulse Resp BP Sys/Rankin Pulse Ox Last 24 Hr 98.0 F-99.0 F 80-89 18-20 103-119/58-72 100-100 GENERAL: The patient is awake, alert, and fully oriented, in no acute distress. HEAD: Normal with no signs of trauma. EYES: PERRL, extraocular movements intact, sclera anicteric, conjunctiva clear. No ptosis. ENT: Ears normal, nares patent, oropharynx clear without exudates, moist mucous membranes. NECK: Trachea midline, full range of motion, supple. LUNGS: Breath sounds equal, clear to auscultation bilaterally, no wheezes, no crackles, no accessory muscle use. HEART: Regular rate and rhythm, S1, S2 without murmur, rub or gallop. ABDOMEN: Soft, nontender, nondistended, normoactive bowel sounds, no guarding, no rebound, no hepatosplenomegaly, no masses. EXTREMITIES: 2+ pulses, warm, well-perfused, no edema. NEUROLOGICAL: Cranial nerves II through XII grossly intact. Normal speech, gait not observed. PSYCH: Normal mood, normal affect. SKIN: Warm, dry, normal turgor, no rashes or lesions noted Laboratory Results - last 24 hr 02/25/18 02/25/18 02/25/18 06:00 06:00 06:00 WBC 9.7 RBC 4.23 Hgb 10.4 L Hct 32.7 MCV 77.3 L MCH 24.6 L MCHC 31.8 L RDW 16.3 H Plt Count 355 MPV 7.5 Absolute Neuts (auto) 7.2 Neutrophils % 74.2 Lymphocytes % 18.7 D Monocytes % 6.1 Eosinophils % 0.5 Basophils % 0.5 Nucleated RBC % 0 ESR PT with INR 14.90 H INR 1.26 H PTT (Actin FS) 30.9 Sodium 139 Potassium 3.8 Chloride 104 Carbon Dioxide 27 Anion Gap 8 BUN 10 Creatinine 0.7 Creat Clearance w eGFR > 60 Random Glucose 92 Hemoglobin A1c % Calcium 8.0 L Phosphorus 4.8 Magnesium 2.2 C-Reactive Protein Blood Type Antibody Screen 02/25/18 02/25/18 02/25/18 06:00 06:00 10:03 WBC RBC Hgb Hct MCV MCH MCHC RDW Plt Count MPV Absolute Neuts (auto) Neutrophils % Lymphocytes % Monocytes % Eosinophils % Basophils % Nucleated RBC % ESR PT with INR INR PTT (Actin FS) Sodium Potassium Chloride Carbon Dioxide Anion Gap BUN Creatinine Creat Clearance w eGFR Random Glucose Hemoglobin A1c % < 5.0 Calcium Phosphorus Magnesium C-Reactive Protein Blood Type O POSITIVE O POSITIVE Antibody Screen Negative 02/25/18 02/25/18 13:45 14:50 WBC RBC Hgb Hct MCV MCH MCHC RDW Plt Count MPV Absolute Neuts (auto) Neutrophils % Lymphocytes % Monocytes % Eosinophils % Basophils % Nucleated RBC % ESR 84 H PT with INR INR PTT (Actin FS) Sodium Potassium Chloride Carbon Dioxide Anion Gap BUN Creatinine Creat Clearance w eGFR Random Glucose Hemoglobin A1c % Calcium Phosphorus Magnesium C-Reactive Protein 17.4 H Blood Type Antibody Screen Active Medications Generic Name Dose Route Start Last Admin Trade Name Freq PRN Reason Stop Dose Admin Acetaminophen 650 mg 02/25/18 09:18 02/25/18 17:52 Tylenol - PO 650 mg Q4H PRN Administration PAIN Escitalopram Oxalate 5 mg 02/26/18 10:00 Lexapro - PO DAILY [facility] Heparin Sodium (Porcine) 5,000 unit 02/24/18 22:30 02/25/18 21:50 Heparin - SQ 5,000 unit TID JOSEFINA Administration Metoprolol Succinate 50 mg 02/26/18 10:00 Toprol Xl - PO DAILY JOSEFINA Miconazole Nitrate 1 applic 02/24/18 22:30 02/25/18 21:49 Miconazole Nitrate TP 1 applic BID JOSEFINA Administration ASSESSMENT/PLAN: 47 y/o female with PMH of HTN, multiple abdominal/pelvic surgery presents with chronic suprapubic swelling with development of lower abdominal wall cellulitis #Abdominal Wall Cellulitis ab/pelvis CT showed skin thickening, inflammatory changes within the anterior abdominal wall of lower pelvis c/w cellulitis but no hematoma or abcess -ID consulted- appreciate recs -ESR/CRP ordered -HIV testing ordered (patient consented) -quanteferon gold ordered -patient not currently on abx -HBA1c <5 #Tinea rash -topical miconazole #Hypertension -stable -holding patients antihypertensive meds for now F/E/N no IVF monitor electrolytes regular diet DVT PPX: heparin SQ
[2018-02-26] MEDS: HEPARIN NA (PORCINE) 5,000 UNITS/ML 1ML VIAL SQ SCH (06:34)
[2018-02-26 08:36] LABS: HEMATOCRIT 36.2 % (32.4-45.2); HEMOGLOBIN 11.5 GM/dL (10.7-15.3); MCH 24.5 pg (25.7-33.7); MCHC 31.8 g/dl (32.0-36.0); MEAN CELL VOLUME 77.1 fl (80-96); MEAN PLT VOLUME 7.6 fl (7.5-11.1); PLATELET COUNT 413 K/MM3 (134-434); RDW 16.3 % (11.6-15.6); WHITE BLOOD COUNT 7.7 K/mm3 (4.0-10.0)
[2018-02-26 09:26] LABS: ALBUMIN 3.1 g/dl (3.4-5.0); ALK PHOS 80 U/L (45-117); ANION GAP 9 MMOL/L (8-16); BILIRUBIN,TOTAL 0.4 mg/dL (0.2-1); BLOOD UREA NITROGEN 11 mg/dL (7-18); CALCIUM 8.7 mg/dL (8.5-10.1); CHLORIDE 102 mmol/L (98-107); CO2 28 mmol/L (21-32); CREATININE 0.8 mg/dL (0.55-1.3); GLUCOSE,RANDOM 84 mg/dL (74-106); POTASSIUM 4.5 mmol/L (3.5-5.1); SGOT/AST 15 U/L (15-37); SGPT/ALT 29 U/L (13-61); SODIUM 139 mmol/L (136-145); TOT PROT 7.2 g/dl (6.4-8.2)
[2018-02-26] MEDS ORDERED: ESCITALOPRAM OXALATE 10 MG TABLET (FP) PO SCH (10:00)
[2018-02-26] MEDS ORDERED: PT OWN MED DRAWER 7, Y5N ONE (10:18)
[2018-02-26] MEDS: MICONAZOLE NITRATE 28 GM TUBE TP SCH (10:42)
[2018-02-26 10:44] VITALS: BP 101/67; PULSE 83; TEMP 98.2
--- NOTE | 2018-02-26 14:15 | DS ---
Physical Exam: SUBJECTIVE: Patient seen and examined at bed side , denies any fever, chills, N/ V/D/C , denies any abdominal pain or urinary symptoms , pt is hemodynamically stable to dc home. OBJECTIVE: Vital Signs Period Temp Pulse Resp BP Sys/Rankin Pulse Ox Last 24 Hr 98 F-98.9 F 82-89 20-20 101-133/58-75 100 PHYSICAL EXAM GENERAL: The patient is awake, alert, and fully oriented, in no acute distress. EYES: no scleral icterus NECK: no JVD, no thyromegaly LUNGS:CTA B/L; no rales, rhonchi or wheezing HEART: Regular rate and rhythm, S1, S2 without murmur, rub or gallop. ABDOMEN: right sided lower abomen/pelvic indurated region with erythema no fluctuance or drainage appreciated; left sided slightly swollen with some induration EXTREMITIES: 2+ pulses, warm, well-perfused, no edema; upper and lower extremities showing a tinea-like rash. PSYCH: Normal mood, normal affect. SKIN: Warm, dry, normal turgor, no rashes or lesions noted LABS Laboratory Results - last 24 hr 02/25/18 02/25/18 02/25/18 06:00 13:45 14:50 WBC RBC Hgb Hct MCV MCH MCHC RDW Plt Count MPV ESR 84 H Sodium Potassium Chloride Carbon Dioxide Anion Gap BUN Creatinine Creat Clearance w eGFR Random Glucose Hemoglobin A1c % < 5.0 Calcium Total Bilirubin AST ALT Alkaline Phosphatase C-Reactive Protein 17.4 H Total Protein Albumin HIV 1&2 Antibody Screen HIV P24 Antigen 02/25/18 02/26/18 02/26/18 14:50 06:00 06:00 WBC 7.7 RBC 4.70 Hgb 11.5 Hct 36.2 MCV 77.1 L MCH 24.5 L MCHC 31.8 L RDW 16.3 H Plt Count 413 MPV 7.6 ESR Sodium 139 Potassium 4.5 Chloride 102 Carbon Dioxide 28 Anion Gap 9 BUN 11 Creatinine 0.8 Creat Clearance w eGFR > 60 Random Glucose 84 Hemoglobin A1c % Calcium 8.7 Total Bilirubin 0.4 AST 15 ALT 29 Alkaline Phosphatase 80 C-Reactive Protein Total Protein 7.2 Albumin 3.1 L HIV 1&2 Antibody Screen Negative HIV P24 Antigen Negative CBC, BMP 02/26/18 06:00 02/26/18 06:00 HOSPITAL COURSE: Date of Admission:02/24/18 Date of Discharge: 02/26/18 47 yof with PMhx of multiple abdominal/pelvic surgeries including hysterectomy, adhesion resection, cosmetic procedures, also has HTN here with suprapubic swelling/induration extending to right labia, for more than 2 months, overall intermittent, chronic for last 1 year with some subjective fevers.treated with antibiotics and ID dr hunt was consulted who agree to monitor her off antibiotics for 24 hour and did not develop any fever, it could be chronic fibrosis , pt need to follow up with plastic surgery as out pt. pt was also found to have tenia versicolor on upper and lower ext treated with miconazole cream she will cont using it uppon discharged . pt will resume her home meds and follow up with her PCP within one week. Minutes to complete discharge: 45 Discharge Summary Reason For Visit: CELLULITIS Current Active Problems Abdominal or pelvic swelling, mass, or lump, generalized (Chronic) Condition: Stable - Instructions Diet, Activity, Other Instructions: You presented to the hospital due to swelling in lower abdominal extended to the genital area , You were treated with antibiotics and you will be discharged home. Please resume all your home meds as before coming to the hospital please follow up with your primary care physician within one week Pleaser apply ice pack on the scar area Please use Tylenol for pain over the counter. You can apply miconazole cream on the rash you have on your body. It is very important that you follow up with a plastic surgeon for continued care within the next 1-2 weeks. Please discuss with your doctor in this regard. If you develop fever, chills, dizziness , lightheadedness or your blood pressure drops, any new redness/swelling or discharge from groin area. please return to emergency room. Referrals: Rene Chin MD [Primary Care Provider] - 1 Week Disposition: HOME - Home Medications Comprehensive Discharge Medication List: Ambulatory Orders Escitalopram Oxalate [Lexapro -] 5 mg PO DAILY 02/24/18 Ibuprofen [Motrin -] 2 tab PO Q6H PRN 02/24/18 Metoprolol Succinate 50 mg PO DAILY 02/24/18 Omeprazole 40 mg PO DAILY 02/24/18 Zolpidem Tartrate [Ambien] 10 mg PO HS 02/24/18 Acetaminophen [Tylenol] 325 mg PO Q8H PRN 02/25/18 Albuterol Sulfate Inhaler - [Ventolin HFA Inhaler -] 2 puff IH Q6H PRN 02/25/18 Miconazole Nitrate [Miconazole Nitrate -] 1 applic TP BID 30 Days #1 tube This patient is new to me today: Yes Date on this admission: 02/26/18 Emergency Visit: Yes ED Registration Date: 02/24/18 Care time: The patient presented to the Emergency Department on the above date and was hospitalized for further evaluation of their emergent condition. Critical Care patient: No - Discharge Referral Referred to [facility] Med [facility] No
--- NOTE | 2018-02-26 14:16 | PN ---
Teaching Attending Note Name of Resident: Kash Arroyo ATTENDING PHYSICIAN STATEMENT I saw and evaluated the patient. I reviewed the resident's note and discussed the case with the resident. I agree with the resident's findings and plan as documented with exceptions below. SUBJECTIVE: Patient seen and examined. No new pain, fevers, chills or discharge. Overall unchanged. OBJECTIVE: Vital Signs Period Temp Pulse Resp BP Sys/Rankin Pulse Ox Last 24 Hr 98 F-98.9 F 82-89 20-20 101-133/58-75 100 Intake & Output 02/23/18 02/24/18 02/25/18 02/26/18 23:59 23:59 23:59 23:59 Intake Total 805 Balance 805 Weight 139 lb 12.8 oz 140 lb General: no acute distress Abdomen:unchanged induration in lower pelvic right labial region, no overlying erythema, warmth, tenderness or new discharge noted Active Medications Acetaminophen (Tylenol -) 650 mg PO Q4H PRN PRN Reason: PAIN Last Admin: 02/25/18 17:52 Dose: 650 mg Escitalopram Oxalate (Lexapro -) 5 mg PO DAILY [facility] Last Admin: 02/26/18 10:41 Dose: 5 mg Heparin Sodium (Porcine) (Heparin -) 5,000 unit SQ TID [facility] Last Admin: 02/26/18 06:34 Dose: 5,000 unit Metoprolol Succinate (Toprol Xl -) 50 mg PO DAILY [facility] Last Admin: 02/26/18 10:43 Dose: Not Given Miconazole Nitrate (Miconazole Nitrate) 1 applic TP BID [facility] Last Admin: 02/26/18 10:42 Dose: 1 applic Laboratory Results - last 24 hr 02/25/18 02/25/18 02/25/18 06:00 13:45 14:50 WBC RBC Hgb Hct MCV MCH MCHC RDW Plt Count MPV ESR 84 H Sodium Potassium Chloride Carbon Dioxide Anion Gap BUN Creatinine Creat Clearance w eGFR Random Glucose Hemoglobin A1c % < 5.0 Calcium Total Bilirubin AST ALT Alkaline Phosphatase C-Reactive Protein 17.4 H Total Protein Albumin HIV 1&2 Antibody Screen HIV P24 Antigen 02/25/18 02/26/18 02/26/18 14:50 06:00 06:00 WBC 7.7 RBC 4.70 Hgb 11.5 Hct 36.2 MCV 77.1 L MCH 24.5 L MCHC 31.8 L RDW 16.3 H Plt Count 413 MPV 7.6 ESR Sodium 139 Potassium 4.5 Chloride 102 Carbon Dioxide 28 Anion Gap 9 BUN 11 Creatinine 0.8 Creat Clearance w eGFR > 60 Random Glucose 84 Hemoglobin A1c % Calcium 8.7 Total Bilirubin 0.4 AST 15 ALT 29 Alkaline Phosphatase 80 C-Reactive Protein Total Protein 7.2 Albumin 3.1 L HIV 1&2 Antibody Screen Negative HIV P24 Antigen Negative Microbiology 02/24/18 21:18 Blood - Peripheral Venous Blood Culture - Preliminary NO GROWTH OBTAINED AFTER 24 HOURS, INCUBATION TO CONTINUE FOR 4 DAYS. 02/24/18 21:18 Blood - Peripheral Venous Blood Culture - Preliminary NO GROWTH OBTAINED AFTER 24 HOURS, INCUBATION TO CONTINUE FOR 4 DAYS. ASSESSMENT AND PLAN: 47 yof with PMhx of multiple abdominal/pelvic surgeries including hysterectomy, adhesion resection, cosmetic procedures, also has HTN here with suprapubic swelling/induration extending to right labia, for more than 2 months, overall intermittent, chronic for last 1 year with some subjective fevers. -Lower abdominal swelling/inudration extending to right labia, ?chronic fibrosis from recurrent infection/inflammation, cannot r/o mass/atypical fungal infections, though clinically not suggestive of acute bacterial infection or cellulitis -HTN -Asthma -multiple abdominal/pelvic surgeries including hysterectomy, adhesion resection , cosmetic procedures Plan: Afebrile, normal WBC. No new infection concerns. Blood cx neg so far. Discussed with patient, needs outpatient plastic surgery follow up to discuss further plan. Patient agrees and will discuss with PCP. Has surgery recs provided from before which she plans to follow up with D/c home today.
== END 2018-02-26 15:02 | disposition home or self-care (01) | DRG 254 ==
LOC: JER 14:33 → JERBED 21:56 → J5S 02-25 03:06
PROVIDERS: ADMIT Internal Medicine; ATTEND Hospitalist
DX: R19.07 Generalized intra-abdominal and pelvic swelling, mass and lump (principal); N83.202 Unspecified ovarian cyst, left side; I10 Essential (primary) hypertension; J45.909 Unspecified asthma, uncomplicated; L03.311 Cellulitis of abdominal wall; B35.9 Dermatophytosis, unspecified
CPT/HCPCS: 36415; 74177-TC; 80048; 80053; 81003; 81015; 83036; 83690; 83735; 84100; 84703; 85025; 85027; 85610; 85651; 85730; 86140; 86480; 86850; 86900; 86901; 87040; 87389; 99284-25; J1644

== ENCOUNTER 2020-03-13 12:42 | Emergency (ER) | payer OTHER ==
[2020-03-13 13:06] VITALS: BMI 28.3
[2020-03-13] MEDS ORDERED: ACETAMINOPHEN 1000 MG/100 ML VIAL (NON FORMULARY) IVPB ONE (14:00)
[2020-03-13] MEDS ORDERED: ACETAMINOPHEN INJECTION 100 ML IVPB ONE (14:05)
[2020-03-13 14:15] LABS: BASO % 0.7 % (0-2.0); EOS % 0.1 % (0-4.5); HEMATOCRIT 39.5 % (32.4-45.2); HEMOGLOBIN 12.8 GM/dL (10.7-15.3); LYMPH % 25.3 % (8-40); MCH 26.5 pg (25.7-33.7); MCHC 32.4 g/dl (32.0-36.0); MEAN CELL VOLUME 81.6 fl (80-96); MEAN PLT VOLUME 8.3 fl (7.5-11.1); MONO % 6.8 % (3.8-10.2); NEUT % 67.1 % (42.8-82.8); PLATELET COUNT 229 K/MM3 (134-434); RBC 4.84 M/mm3 (3.60-5.2); RDW 15.3 % (11.6-15.6); WHITE BLOOD COUNT 7.3 K/mm3 (4.0-10.0)
[2020-03-13 14:52] LABS: CHLORIDE 107 mmol/L (98-107); SODIUM 139 mmol/L (136-145)
[2020-03-13 14:54] LABS: CALCIUM 8.7 mg/dL (8.5-10.1)
[2020-03-13 14:55] LABS: ALBUMIN 3.5 g/dl (3.4-5.0); ANION GAP 9 MMOL/L (8-16); BLOOD UREA NITROGEN 16.6 mg/dL (7-18); CO2 23 mmol/L (21-32); GLUCOSE,RANDOM 89 mg/dL (74-106); LIPASE 125 U/L (73-393)
[2020-03-13 14:57] LABS: CREATININE 0.9 mg/dL (0.55-1.3); SGPT/ALT 69 U/L (13-61)
[2020-03-13 14:58] LABS: SGOT/AST 27 U/L (15-37)
[2020-03-13 14:59] LABS: ALK PHOS 78 U/L (45-117); BILIRUBIN,TOTAL 0.4 mg/dL (0.2-1); TOT PROT 6.9 g/dl (6.4-8.2)
[2020-03-13 15:48] VITALS: BP 129/72; PULSE 78; TEMP 98.2
== END 2020-03-13 15:57 | disposition home or self-care (01) ==
LOC: JER 12:42
PROC: 3E033NZ Introduction of Analgesics, Hypnotics, Sedatives into Peripheral Vein, Percutaneous Approach (ICD-10-PCS; principal; 2020-03-13)
DX: R07.9 Chest pain, unspecified (principal)
CPT/HCPCS: 36415; 71046-TC-FY; 80053; 82550; 83690; 84484; 85025; 93005; 93010; 99285-25; C9803; J0131; U0003

== ENCOUNTER 2021-07-02 14:40 | Emergency (ER) | payer OTHER ==
[2021-07-02 14:58] VITALS: TEMP 97.6; BMI 27.4
[2021-07-02] MEDS ORDERED: SODIUM CHLORIDE 0.9% 500 ML INFUS.BAG IV ONE (15:35)
[2021-07-02] MEDS ORDERED: ACETAMINOPHEN 1000 MG/100 ML BAG IVPB ONE (15:35)
[2021-07-02] MEDS ORDERED: MAG HYDROX/AL HYDROX/SIMETH 30 ML UNIT-DOSE CUP PO ONE ×2 (15:35→18:02)
[2021-07-02] MEDS ORDERED: ONDANSETRON 4 MG/2 ML VIAL IVPUSH ONE ×2 (15:35→18:02)
[2021-07-02] MEDS ORDERED: FAMOTIDINE 20 MG/50 ML IVPB 20 MG/50 ML MG IVPB ONE ×2 (15:35→15:42)
[2021-07-02] MEDS ORDERED: MAG HYDROX/AL HYDROX/SIMETH 30 ML UNIT-DOSE CUP ONE ×2 (15:42→18:14)
[2021-07-02] MEDS ORDERED: ONDANSETRON 4 MG/2 ML VIAL ONE ×2 (15:42→18:14)
[2021-07-02] MEDS ORDERED: ACETAMINOPHEN INJECTION 100 ML IVPB ONE (15:42)
[2021-07-02 16:38] LABS: BASO % 0.8 % (0-2.0); HEMATOCRIT 37.8 % (32.4-45.2); HEMOGLOBIN 12.6 GM/dL (10.7-15.3); LYMPH % 27.6 % (8-40); MCH 25.9 pg (25.7-33.7); MCHC 33.4 g/dl (32.0-36.0); MEAN CELL VOLUME 77.6 fl (80-96); MEAN PLT VOLUME 7.9 fl (7.5-11.1); MONO % 6.2 % (3.8-10.2); NEUT % 65.4 % (42.8-82.8); PLATELET COUNT 277 10^3/uL (134-434); RBC 4.86 M/mm3 (3.60-5.2); WHITE BLOOD COUNT 7.2 K/mm3 (4.0-10.0)
[2021-07-02 16:56] LABS: CALCIUM 9.1 mg/dL (8.5-10.1)
[2021-07-02 16:57] LABS: ALBUMIN 3.8 g/dl (3.4-5.0); BLOOD UREA NITROGEN 15.1 mg/dL (7-18); MAGNESIUM 2.1 mg/dL (1.8-2.4)
[2021-07-02 17:00] LABS: CREATININE 0.9 mg/dL (0.55-1.3)
[2021-07-02 17:01] LABS: BILIRUBIN,TOTAL 0.4 mg/dL (0.2-1); TOT PROT 7.3 g/dl (6.4-8.2)
[2021-07-02] MEDS ORDERED: LIDOCAINE VISCOUS 2% ORAL/TOP 15 ML UNIT-DOSE CUP MM ONE (18:02)
[2021-07-02] MEDS ORDERED: LIDOCAINE VISCOUS 2% ORAL/TOP 15 ML UNIT-DOSE CUP ONE (18:14)
[2021-07-02 19:00] VITALS: BP 142/89; PULSE 78
== END 2021-07-02 18:59 | disposition home or self-care (01) ==
LOC: JER 14:40
PROC: 3E0333Z Introduction of Anti-inflammatory into Peripheral Vein, Percutaneous Approach (ICD-10-PCS; principal; 2021-07-02)
PROC: 3E033GC Introduction of Other Therapeutic Substance into Peripheral Vein, Percutaneous Approach (ICD-10-PCS; 2021-07-02)
PROC: 3E033GC Introduction of Other Therapeutic Substance into Peripheral Vein, Percutaneous Approach (ICD-10-PCS; 2021-07-02)
PROC: 3E033GC Introduction of Other Therapeutic Substance into Peripheral Vein, Percutaneous Approach (ICD-10-PCS; 2021-07-02)
DX: R11.2 Nausea with vomiting, unspecified (principal)
CPT/HCPCS: 36415; 80053; 83690; 83735; 84703; 85025; 93005; 93010; 99284-25

== ENCOUNTER 2023-01-14 14:07 | Emergency (ER) | payer OTHER ==
[2023-01-14 14:18] VITALS: BP 138/64; PULSE 80; RESP 20; TEMP 98.4; BMI 27.6
[2023-01-14] MEDS ORDERED: KETOROLAC TROMETHAMINE 30 MG/1 ML VIAL IM ONE (15:36)
[2023-01-14] MEDS ORDERED: ACETAMINOPHEN 500 MG TABLET (FP) PO ONE (15:36)
[2023-01-14] MEDS ORDERED: LIDOCAINE 5% TOPICAL PATCH TP ONE (15:37)
[2023-01-14] MEDS ORDERED: KETOROLAC TROMETHAMINE 30 MG/1 ML VIAL ONE (16:51)
[2023-01-14] MEDS ORDERED: ACETAMINOPHEN 500 MG TABLET (FP) ONE (16:51)
[2023-01-14] MEDS ORDERED: LIDOCAINE 4% PATCH TP ONE (16:53)
[2023-01-14] MEDS ORDERED: LIDOCAINE PATCH REMOVAL MC SCH (22:00)
== END 2023-01-14 17:01 | disposition home or self-care (01) ==
LOC: JER 14:07
PROC: 3E0233Z Introduction of Anti-inflammatory into Muscle, Percutaneous Approach (ICD-10-PCS; principal; 2023-01-14)
DX: R51.9 Headache, unspecified (principal); M54.2 Cervicalgia
CPT/HCPCS: 99284-25